=== PATIENT | female | born 1960 ===

== ENCOUNTER 2020-06-21 21:56 | Emergency (ER) | payer OTHER, SELFPAY ==
[2020-06-21 21:57] VITALS: BP 125/74; PULSE 92; RESP 16; O2SAT 92; BMI 29.2
--- NOTE | 2020-06-21 21:57 | XRR_ITS ---
PROCEDURE INFORMATION: Exam: XR Left Ankle Exam date and time: 06/21/2020 10:14 PM Age: 60 years old Clinical indication: Injury or trauma; Fall; Initial encounter; Fracture, traumatic; Closed fracture; Ankle; Left; Not specified; Additional info: Left ankle injury TECHNIQUE: Imaging protocol: XR Left ankle. Views: 3 or more views. COMPARISON: No relevant prior studies available. FINDINGS: Bones/joints: There is a comminuted fracture of the distal left fibular diaphysis. There is a fracture of the posterior tibial plafond and medial malleolus of the left ankle with 1 full bone width of medial dislocation of the tibiotalar joint. There is diastasis of the distal tibial fibular joint. Soft tissues: Normal. XR/XR ankle LT min 3V* [id number] IMPRESSION: 1. Acute comminuted fracture of the distal left fibular diaphysis. 2. Acute fracture of the distal left tibial posterior plafond and medial malleolus with 1 full bone width of medial dislocation of the tibiotalar joint. 3. Diastasis of the distal left tibial fibular joint.
--- NOTE | 2020-06-21 22:01 | ED_ITS ---
HPI - Fall General: Chief Complaint: Extremity Injury, Lower Stated Complaint: ANKLE BROKE Time Seen by Provider: 06/21/20 21:57 Source: patient Mode of arrival: ambulatory Limitations: no limitations History of Present Illness: HPI Narrative: 60-year-old female who was walking down embankment however and twisted her left ankle. Patient has obvious ankle fracture with dislocation. Patient states pain is currently 6 out of 10. Patient was given ketamine and fentanyl in route by EMS. She denies any other injuries. She denies hitting her head. She denies any hip or knee pain. Associated symptoms-after fall: Denies abdominal pain, chest pain or headache(s) Review of Systems Const: Denies: fever(s), chills, body aches or change in appetite Eyes: Denies: blurry vision or eye discomfort ENMT: Denies: throat pain or dental pain Card: Denies: chest pain Resp: Denies: dyspnea GI: Denies: abdominal pain, nausea, vomiting or diarrhea : Denies: dysuria Musc: Reports: extremity pain Skin/Breast: Denies: rash Neuro: Denies: headache(s) Psych: Denies: depression Sandro/Lymph: Denies: easy bruising All/Imm: Denies: urticaria Physical Exam Const: COMMON NORMALS: no acute distress, patient oriented x3 and healthy appearing HENMT: COMMON NORMALS: normocephalic and atraumatic HEAD & SCALP: normocephalic and atraumatic Eye: COMMON NORMALS: Equal, round and reactive pupils present and EOMs intact bilaterally PUPIL: Yes Equal, round and reactive pupils present Neck/C-Spine: COMMON NORMALS: full ROM and supple Chest: COMMONS NORMALS: normal inspection of the chest and normal palpation of entire chest wall Resp: COMMON NORMALS: normal respiratory effort, No retractions, No use of accessory muscles and clear to auscultation bilaterally AUSCULTATION: clear to auscultation bilaterally Cardio: COMMON NORMALS: regular rate, regular rhythm and No murmurs present (Cardio) RATE: regular rate RHYTHM: regular rhythm GI: COMMON NORMALS: Normal to inspection, nondistended, normoactive bowel sounds present, Soft to palpation, non-tender and no masses PALPATION: Yes Soft to palpation Extremity: COMMON NORMALS: normal to inspection and full ROM NARRATIVE EXTREMITY EXAM: Obvious ankle fracture to the left ankle with dislocation distal pulses are intact. Neuro: COMMON NORMALS: patient oriented x3, moves all extremities and no focal motor deficits Psych: COMMON NORMALS: mental status grossly normal, Normal thought process present and cooperative THOUGHT PROCESS: Normal thought process present Skin: COMMON NORMALS: no rashes or lesions noted and no wounds GENERAL SKIN EXAM: no rashes or lesions noted Procedures Orthopedic Fracture Reduction Fracture #1: Time Out Performed: Yes Side: left Fracture Reduction Location: other (ankle) Analgesia: procedural sedation Post Reduction X-rays Demonstrate: anatomical reduction Post-reduction neuro exam: intact Post-reduction vascular exam: intact Splint Applied: Yes Patient Tolerated Procedure: well Procedural Sedation Indication: fracture/dislocation reduction ASA Class: I Time of Last PO Intake: 15:51 Preparation: field crop technical officer applied, pulse oximeter, capnometry used, supplemental O2 applied and suction/airway equipment at bedside IV Propofol dose (mg): 100 Patient Tolerated Procedure: well Complications: none Course Vital Signs: Vital signs: Vital Signs Pulse Rate 92 06/21/20 22:46 Respiratory Rate 16 06/21/20 22:46 Blood Pressure 103/63 06/21/20 22:46 Pulse Oximetry 93 06/21/20 22:46 MDM - Fall MDM Narrative: Medical decision making narrative: Patient presents here with a ankle fracture dislocation. Patient's fracture is successfully reduced. Dr. Mackay reviewed the films and feel patient is stable for discharge. Patient wants to follow-up with orthopedics in [place] as she is from [facility]. Patient is stable for discharge and was reduced here and splint was placed. Patient had good sensation and cap refill to her toes after splint placement. Patient given disc of her x-ray films and she is stable for discharge. She is to return if any worsening Imaging Data^: xr ankle: Attestation: I personally reviewed and interpreted this imaging study as follows: My impression: trimal fx with dislocation Discharge Plan Discharge Patient Disposition: Home Clinical Impression: Ankle fracture Qualifiers: Encounter type: initial encounter Fracture type: closed Laterality: left Qualified Code(s): S82.892A - Other fracture of left lower leg, initial encounter for closed fracture Condition: Stable Prescriptions: [place] 5-325 mg tablet 1 tab PO Q6H PRN (Reason: pain) Qty: 18 RF: 0 Discharge Orders: Discharge Order (Routine); Ordered 06/21/20 Ordered By: Aarti Dan Referrals: Adalberto Mackay DPM [Physician] - 1-3 days Discharge Diet: Advance as tolerated Discharge Activity: Resume usual activity Patient Instructions: Ankle Fracture (ED) Stand Alone Forms: Work/School Release Coding Level of Care Code ED Clinical Trial Head for Deloresg Fwd Exam Comprehensive
[2020-06-21 22:19] VITALS: BP 125/74; PULSE 100; RESP 18; O2SAT 99
[2020-06-21] MEDS: propofol 10 mg/mL SDV 20 mL 100 MG IVP (22:24)
[2020-06-21 22:26] VITALS: BP 110/70; PULSE 94; O2SAT 96
--- NOTE | 2020-06-21 22:36 | XRR_ITS ---
PROCEDURE INFORMATION: Exam: XR Left Ankle Exam date and time: 06/21/2020 10:42 PM Age: 60 years old Clinical indication: Pain; Ankle; Left; Additional info: Post reduction TECHNIQUE: Imaging protocol: XR Left ankle. Views: 1 or 2 views. COMPARISON: CR XR ankle LT min 3V* [id number] 06/21/2020 9:59 PM FINDINGS: Bones/joints: Status post closed reduction of a comminuted fracture of the distal left fibular diaphysis and fracture dislocation of the posterior tibial plafond and medial malleolus with satisfactory alignment, positioning and conjugation achieved. Soft tissues: Normal. XR/XR ankle LT 2V [id number] IMPRESSION: Satisfactory reduction of fractures of the distal left fibular diaphysis, posterior tibial plafond and medial malleolus and medial dislocation of the tibiotalar joint as described above.
[2020-06-21 22:46] VITALS: BP 103/63; PULSE 92; RESP 16; O2SAT 93
[2020-06-21] MEDS: HYDROcodone-acetaminophen 7.5-325 mg Tablet 1 TAB PO (23:34)
[2020-06-21 23:44] VITALS: BP 102/56; PULSE 98; RESP 16; O2SAT 100
[2020-06-22] MEDS: oxyCODONE-APAP 5-325 mg Tablet 2 TAB PO (00:02)
--- NOTE | 2020-06-23 15:01 | DCPLANNER ---
atm manager had message to schedule a follow up appointment for patient with ortho. atm manager called the ortho clinic, spoke with Saige, gave clinic patients information. atm manager was told that patients information would be printed and reviewed. Clinic will call patient with appointment information.
--- NOTE | 2020-06-26 13:48 | DCPLANNER ---
nursery manager called the ortho clinic to confirm that a follow up appointment had been scheduled for patient. nursery manager spoke with Saige, was told that when clinic called patient to schedule a follow up appointment, that patient stated that they are following up in [facility].
== END 2020-06-22 00:39 | disposition home or self-care (01) ==
LOC: ER 23:23
PROVIDERS: Emergency Provider Emergency Medicine
DX: S82.452A Displaced comminuted fracture of shaft of left fibula, initial encounter for closed fracture (principal); S82.52XA Displaced fracture of medial malleolus of left tibia, initial encounter for closed fracture; X50.1XXA Overexertion from prolonged static or awkward postures, initial encounter
CPT/HCPCS: 12345; 27810; 27825; 73600; 73610; 96375; 99282; 99284; E0114; J2704